=== PATIENT | male | born 1965 | race Caucasian/White ===

== ENCOUNTER 2016-08-18 13:48 | Emergency (ER) | payer OTHER, MEDICARE ==
[~2016-08-18] VITALS: Ht 182.9 cm; Wt 94.0 kg
[~2016-08-18 13:48] MED LIST: BENA25TA8 PO; BETH25TA PO; CEVI30CA PO; CLOB-50 TOP; CRES10TA PO; CYAN1000P IM; DICL25 PO; DULO60 PO; ENBR50IN3 SC; FAMO1TAB36 PO; FEXO180 PO; FLON0.053 EACH NARE; GABA600T PO; HYDR10SO PO; KETO1AER TOP; LINA145C PO; LISI-591 PO; LOSA100T PO; METO50TA PO; MONT10TA2 PO; MYCO500 PO; NIFE10 PO; NIFE20CA PO; NITR0.4S SL; NOVOINJ3 SQ; NOVOLOGP2 SQ; OLOP.1%O EACH EYE; PRED1%O EACH EYE; PRED20 PO; PROT40TA PO; ROBA750T3 PO; SYMB160A INH; TEST1INJ3 IM; ULTR50TA PO; VENTAER INH; XANA0.5T PO; Z.0.OXYGEN INH; ZOLP10TA3 PO
[2016-08-18 14:00] VITALS: BP_SYST 112; BP_SYST 115; BP_DIAS 69; BP_DIAS 75; PULSE 110; PULSE 96; RESP 16; TEMP 100.6; TEMP 99.9; O2SAT 92; O2SAT 93
[2016-08-18] MEDS ORDERED: SODIUM CHLOR 0.9% 1000 ML INJ 1,000 ML IV ONE (14:15)
[2016-08-18] MEDS ORDERED: ONDANSETRON HCL 4 MG/2 ML VIAL IV PUSH ONE (14:15)
[2016-08-18] MEDS ORDERED: ACETAMINOPHEN 325 MG TAB PO ONE (14:15)
[2016-08-18] MEDS ORDERED: RESP: ALBUTEROL 2.5 MG/IPRATROPIUM 0.5 MG NEB (SCH) INH ONE (14:15)
--- NOTE | 2016-08-18 14:19 | PD ---
HPI Chief Complaint: Cold / Flu Symptoms Time Seen by Provider: 14:05 Travel History International Travel<30 days: No Contact w/Intl Traveler<30days: No Traveled to known affect area: No History of Present Illness HPI 50-year-old male complains of fever, lightheadedness, dizziness, coughing, earache, shortness of breath, abdominal cramping. Patient states that he started having intermittent earache for the past month. Patient was seen by personal physician 4 days ago and examination was normal. Patient started having fever lightheadedness dizziness coughing shortness of breath abdominal cramping 2 days ago. Patient states that she took Tylenol prior coming to the emergency room. Patient has history of COPD. Patient denies any chest pain. Patient states the cough is persistent and nonproductive. Patient was given Tamiflu in the past and was not able to tolerated Tamiflu. PFSH Past Medical History Anemia: Yes (PERNICIOUS) Arthritis: No Asthma: Yes Autoimmune Disease: Yes Blood Disorders: No Anxiety: Yes Depression: No Heart Rhythm Problems: No Cancer: No Cardiovascular Problems: Yes (HTN vasculitis) High Cholesterol: Yes Chemotherapy: No Chest Pain: No Congestive Heart Failure: No COPD: Yes Cerebrovascular Accident: No Diabetes: Yes Diminished Hearing: No Endocrine: Yes Gastrointestinal Disorders: Yes (CONSTIPATION, GASTROPARESIS) GERD: Yes Genitourinary: No Headaches: Yes Hepatitis: No Hiatal Hernia: No Hypertension: Yes Immune Disorder: Yes (BEHCETS SYNDROME polymyocyitis) Insomnia: Yes Kidney Stones: No Musculoskeletal: Yes (ANKYLOSIN SPONDYLITIS, OSTEOPENIA, chronic back pain) Neurologic: Yes (headache/dizzyness, PERIPHERAL NEUROPATHY) Psychiatric: Yes (insomnia anxiety) Reproductive: No Respiratory: Yes (COPD) Migraines: No Myocardial Infarction: No Radiation Therapy: No Renal Failure: No Seizures: No Sickle Cell Disease: No Sleep Apnea: Yes (WITH CPAP & O2) Thyroid Disease: No Ulcer: No Past Surgical History Abdominal Surgery: Yes (hernia) AICD: No Arteriovenous Shunt: No Body Medical Devices: tooth implants in the front upper Cardiac Surgery: No Ear Surgery: No Endocrine Surgery: No Eye Surgery: No Genitourinary Surgery: No Gynecologic Surgery: No Insulin Pump: No Joint Replacement: No Oral Surgery: Yes (t and a) Pacemaker: No Thoracic Surgery: No Tonsillectomy: Yes Other Surgery: Yes (hernia repair when 3 years old) Social History Alcohol Use: No Tobacco Use: No Substance Use: No Allergies-Medications (Allergen,Severity, Reaction): Coded Allergies: *MDRO Multi-Drug Resistant Organism (Unverified Adverse Reaction, Unknown , 08/18/16) MRSA finger wound per 12/20/2014 ED note and H&P. MRSA PCR Screen #1 negative 05/29/15. Reported Meds & Prescriptions Reported Meds & Active Scripts Active Reported Vitamin B-12 (Cyanocobalamin) 100 Mcg Lozg 100 Mcg BUCCAL DAILY Testosterone (Testosterone (Bulk)) 1 Pow Pow 1 Ml WEEKLY Tramadol (Tramadol HCl) 50 Mg Tab 50 Mg PO BID PRN Prednisone 10 Mg Tab 10 Mg PO DAILY Protonix (Pantoprazole Sodium) 40 Mg Tab 40 Mg PO DAILY Prednisolone Acetate Opth 1% Susp Patanol Opth Drops (Olopatadine HCl) 0.1 % Drops 1 Drop EACH EYE BID Novolog Flexpen Inj (Insulin Aspart) 300 Unit/3 Ml Pen 1 Units SQ DIRECTED Linzess (Linaclotide) 145 Mcg Cap 145 Mcg PO DAILY Hydrocodone-Acetaminophen 5-325 mg Tab 1 Tab PO BID PRN Allergy Nasal [place] 24 Ho (Fluticasone Propionate (Nasal)) 50 Mcg/Act Spr 50 Mcg EACH NARE BID Eszopiclone 1 Mg Tab 1 Mg PO HS PRN Crestor (Rosuvastatin Calcium) 20 Mg Tab 20 Mg PO DAILY Clobetasol Topical (Clobetasol Propionate) 0.05% Cream 1 Applic TOPICAL BID Bethanechol 25 Mg Tab 12.5 Mg PO QID Alprazolam 0.5 Mg Tab 0.5 Mg PO BID PRN Vibramycin (Doxycycline Hyclate) 100 Mg Cap 100 Mg PO BID Synthroid (Levothyroxine Sodium) 100 Mcg Tab 100 Mcg PO DAILY Metoprolol Tartrate 50 Mg Tab 50 Mg PO BID Lisinopril 5 Mg Tab 5 Mg PO HS Review of Systems General / Constitutional: Positive: Fever Eyes: No: Visual changes HENT: No: Headaches Cardiovascular: No: Chest Pain or Discomfort Respiratory: Positive: Cough, Shortness of Breath Gastrointestinal: Positive: Nausea, Vomiting, No: Abdominal Pain Genitourinary: No: Dysuria Musculoskeletal: No: Pain Skin: No Rash Neurologic: No: Weakness Psychiatric: No: Depression Endocrine: No: Polydipsia Hematologic/Lymphatic: No: Easy Bruising Physical Exam Narrative GENERAL: Well-nourished, well-developed patient. SKIN: Warm and dry. HEAD: Normocephalic. EYES: No scleral icterus. No injection or drainage. TM: Patient has mild effusion behind the TM bilaterally. Throat: Nonerythematous. NECK: Supple, trachea midline. No JVD. Patient has mild anterior cervical lymphadenopathy. No meningismus CARDIOVASCULAR: Regular rate and rhythm without murmurs, gallops, or rubs. RESPIRATORY: Breath sounds equal bilaterally. No accessory muscle use. Few rhonchi at the bases. GASTROINTESTINAL: Abdomen soft, non-tender, nondistended. MUSCULOSKELETAL: No cyanosis, or edema. BACK: Nontender without obvious deformity. No CVA tenderness. Neurologic exam normal. Data Data Last Documented VS Vital Signs Date Time Temp Pulse Resp B/P Pulse Ox O2 Delivery O2 Flow Rate FiO2 08/18/16 14:00 93 08/18/16 14:00 100.6 96 16 112/75 08/18/16 14:00 Room Air Orders Complete Blood Count With Diff (08/18/16 14:11) Comprehensive Metabolic Panel (08/18/16 14:11) Influenzae A/B Antigen (08/18/16 14:11) Chest, Single Ap (08/18/16 14:11) Iv Access Insert/Monitor (08/18/16 14:11) Ecg Monitoring (08/18/16 14:11) Oximetry (08/18/16 14:11) Sodium Chlor 0.9% 1000 Ml Inj (Ns 1000 M (08/18/16 14:15) Ondansetron Inj (Zofran Inj) (08/18/16 14:15) Acetaminophen (Tylenol) (08/18/16 14:15) Albuterol-Ipratropium Neb (Duoneb Neb) (08/18/16 14:15) Ketorolac Inj (Toradol Inj) (08/18/16 15:00) Labs Laboratory Tests Test 08/18/16 14:30 White Blood Count 7.1 TH/MM3 Red Blood Count 6.05 MIL/MM3 Hemoglobin 16.8 GM/DL Hematocrit 49.5 % Mean Corpuscular Volume 81.8 FL Mean Corpuscular Hemoglobin 27.7 PG Mean Corpuscular Hemoglobin 33.8 % Concent Red Cell Distribution Width 13.5 % Platelet Count 167 TH/MM3 Mean Platelet Volume 7.4 FL Neutrophils (%) (Auto) 87.9 % Lymphocytes (%) (Auto) 5.3 % Monocytes (%) (Auto) 6.2 % Eosinophils (%) (Auto) 0.2 % Basophils (%) (Auto) 0.4 % Neutrophils # (Auto) 6.3 TH/MM3 Lymphocytes # (Auto) 0.4 TH/MM3 Monocytes # (Auto) 0.4 TH/MM3 Eosinophils # (Auto) 0.0 TH/MM3 Basophils # (Auto) 0.0 TH/MM3 CBC Comment DIFF FINAL Differential Comment Sodium Level 136 MEQ/L Potassium Level 4.2 MEQ/L Chloride Level 99 MEQ/L Carbon Dioxide Level 26.3 MEQ/L Anion Gap 11 MEQ/L Blood Urea Nitrogen 14 MG/DL Creatinine 1.30 MG/DL Estimat Glomerular Filtration 58 ML/MIN Rate Random Glucose 85 MG/DL Calcium Level 8.7 MG/DL Total Bilirubin 1.1 MG/DL Aspartate Amino Transf 18 U/L (AST/SGOT) Alanine Aminotransferase 23 U/L (ALT/SGPT) Alkaline Phosphatase 60 U/L Total Protein 7.5 GM/DL Albumin 3.8 GM/DL [facility] Medical Decision Making Medical Screen Exam Complete: Yes Emergency Medical Condition: Yes Interpretation(s) 1517 p.m. Chest x-ray shows no consolidation. CBC within normal limit. 87 neutrophil. CMP within normal limit. Differential Diagnosis Differential diagnosis including viral syndrome, otitis media, pharyngitis, bronchitis, pneumonia, gastroenteritis, colitis, electrolyte imbalance, dehydration. Narrative Course 50-year-old male with fever, coughing congestion, shortness of breath, nausea vomiting lightheadedness and dizziness. Normal saline solution 1 L IV bolus. Zofran 4 mg IV. Albuterol with Atrovent unit dose treatment times one. Diagnosis Primary Impression: Flu Additional Impression: COPD with acute exacerbation Patient Instructions: General Instructions Additional Instructions: Take medication as directed. Albuterol treatment as directed. Follow-up with personal physician. Return if worse. Med/Other Pt SpecificInfo: Prescription(s) given Scripts Benzonatate (Tessalon Perles)100 Mg [id number] Mg PO TID PRN (COUGH) #21 CAP Prov:Regis Alvarez MD 08/18/16 Hydrocodone-Acetaminophen (Mineral)5-325 mg Tab1 Tab PO Q6H PRN (PAIN) #20 TAB Prov:Regis Alvarez MD 08/18/16 Prednisone 20 Mg Tab20 Mg PO BID #10 TAB Prov:Regis Alvarez MD 08/18/16 Azithromycin (Zithromax Z-Andrews)250 Mg [id number] Mg PO DIRECTED #1 DSPK 500 MG (2 tabs) day 1, then 1 tab days 2-5. Prov:Regis Alvarez MD 08/18/16 Disposition: 01 DISCHARGE HOME Condition: Stable Regis Alvarez MD Aug 18, 2016 14:19
[2016-08-18] MEDS ORDERED: FLUT1SPR22 EACH NARE (14:22)
[2016-08-18] MEDS ORDERED: PRED1SUS6 (14:22)
[2016-08-18] MEDS ORDERED: ALPR0.5T3 PO (14:22)
[2016-08-18] MEDS ORDERED: TEST-55 (14:22)
[2016-08-18] MEDS ORDERED: ROSU20 PO (14:22)
[2016-08-18] MEDS ORDERED: PRED10 PO (14:22)
[2016-08-18] MEDS ORDERED: LINA145C PO (14:22)
[2016-08-18] MEDS ORDERED: LEVO.1 PO (14:22)
[2016-08-18] MEDS ORDERED: BETH25TA2 PO (14:22)
[2016-08-18] MEDS ORDERED: VIBR100C PO (14:22)
[2016-08-18] MEDS ORDERED: OLOP.1%O EACH EYE (14:22)
[2016-08-18] MEDS ORDERED: LISI-519 PO (14:22)
[2016-08-18] MEDS ORDERED: CLOB0.055 TOPICAL (14:22)
[2016-08-18] MEDS ORDERED: PROT40TA PO (14:22)
[2016-08-18] MEDS ORDERED: ESZO1TAB2 PO (14:22)
[2016-08-18] MEDS ORDERED: METO50TA PO (14:22)
[2016-08-18] MEDS ORDERED: VITA100L BUCCAL (14:22)
[2016-08-18] MEDS ORDERED: TRAM50TA PO (14:22)
[2016-08-18] MEDS ORDERED: HYDR-3516 PO (14:22)
[2016-08-18] MEDS ORDERED: NOVOINJ3 SQ (14:22)
--- NOTE | 2016-08-18 14:31 | RADHPO ---
EXAM DATE/TIME: 08/18/2016 14:23 [facility] COMPARISON: CHEST SINGLE AP, May 27, 2015, 22:15. INDICATIONS : Short of breath, cough, fever, chest pain MEDICAL HISTORY : Chronic obstructive pulmonary disease. SURGICAL HISTORY : None. ENCOUNTER: Initial ACUITY: 4 - 6 days PAIN SCORE: 6/10 LOCATION: Bilateral chest FINDINGS: A single view of the chest demonstrates the lungs to be symmetrically aerated without evidence of mas s, infiltrate or effusion. The cardiomediastinal contours are unremarkable. Osseous structures are intact. CONCLUSION: Normal examination. Gurjit Espinal MD on August 18, 2016 at 14:29 Board Certified Radiologist. This report was verified electronically.
[2016-08-18 14:41] LABS: AUTOMATED NEUTROPHIL # 6.3 TH/MM3 (1.8-7.7); BASOPHIL % 0.4 % (0.0-2.0); EOSINOPHIL % 0.2 % (0.0-4.0); HEMATOCRIT 49.5 % (39.0-51.0); LYMPH % 5.3 % (9.0-44.0); LYMPHOCYTE # 0.4 TH/MM3 (1.0-4.8); MEAN CELL VOLUME 81.8 FL (80.0-100.0); MEAN CORPUSCULAR HEMOGLOBIN 27.7 PG (27.0-34.0); MEAN CORPUSCULAR HGB CONC 33.8 % (32.0-36.0); MONO % 6.2 % (0.0-8.0); NEUT % 87.9 % (16.0-70.0); PLATELET COUNT 167 TH/MM3 (150-450); RED BLOOD COUNT 6.05 MIL/MM3 (4.50-5.90); RED CELL DISTRIBUTION WIDTH 13.5 % (11.6-17.2); WHITE BLOOD COUNT 7.1 TH/MM3 (4.0-11.0)
[2016-08-18 14:42] LABS: HEMO FLAGS DIFF FINAL
[2016-08-18 14:53] LABS: CHLORIDE 99 MEQ/L (98-107); POTASSIUM 4.2 MEQ/L (3.5-5.1); SODIUM (NA) 136 MEQ/L (136-145)
[2016-08-18 14:57] LABS: BICARBONATE 26.3 MEQ/L (21.0-32.0); BLOOD UREA NITROGEN 14 MG/DL (7-18)
[2016-08-18 14:59] LABS: ANION GAP 11 MEQ/L (5-15)
[2016-08-18 15:00] LABS: ALT (GPT) 23 U/L (12-78); AST (GOT) 18 U/L (15-37); GLOMERULAR FILTRATION RATE 58 ML/MIN (>89)
[2016-08-18] MEDS ORDERED: KETOROLAC TROMETHAMINE 30 MG/ML (IVP) VIAL IV PUSH ONE (15:00)
[2016-08-18 15:02] LABS: TOTAL BILIRUBIN ADULT 1.1 MG/DL (0.2-1.0)
[2016-08-18 15:03] LABS: ALKALINE PHOSPHATASE 60 U/L (45-117)
[2016-08-18] MEDS ORDERED: BENZ100 PO (15:30)
[2016-08-18] MEDS ORDERED: NORC5TAB PO (15:30)
[2016-08-18] MEDS ORDERED: ZITHTAB PO (15:30)
[2016-08-18] MEDS ORDERED: PRED20 PO (15:30)
[2016-08-19] MEDS ORDERED: IPRA0.02 NEB (17:21)
[2016-08-19] MEDS ORDERED: ALBU0.08 NEB (17:21)
== END 2016-08-18 16:07 | disposition home or self-care (01) ==
LOC: PHED 13:48
DX: J11.1 Influenza due to unidentified influenza virus with other respiratory manifestations (principal); J44.1 Chronic obstructive pulmonary disease with (acute) exacerbation; R42 Dizziness and giddiness; H92.09 Otalgia, unspecified ear; I10 Essential (primary) hypertension; E78.00 Pure hypercholesterolemia, unspecified; E11.9 Type 2 diabetes mellitus without complications; G47.30 Sleep apnea, unspecified; Z79.4 Long term (current) use of insulin; Z87.19 Personal history of other diseases of the digestive system; Z87.09 Personal history of other diseases of the respiratory system; Z86.2 Personal history of diseases of the blood and blood-forming organs and certain disorders involving the immune mechanism; Z87.39 Personal history of other diseases of the musculoskeletal system and connective tissue; Z86.69 Personal history of other diseases of the nervous system and sense organs; Z86.59 Personal history of other mental and behavioral disorders
CPT/HCPCS: 71010; 80053; 85025; 87804; 94664; 96361; 96374; 96375; 99284; J1885; J2405; J7030

== ENCOUNTER → 2016-09-17 | Outpatient (CLI) | payer OTHER, MEDICARE ==
[~2016-09-17] MED LIST changes: +ACTHAR IM; +ALBU0.08 NEB; +ALBUAER3 INH; +ALPR0.5T3 PO; +AZAT1INJ; +BENA25CA4 PO; -BENA25TA8 PO; +BENZ100 PO; -BETH25TA PO; +BETH25TA2 PO; -CEVI30CA PO; -CLOB-50 TOP; +CLOB0.055 TOPICAL; -CRES10TA PO; -CYAN1000P IM; -DICL25 PO; -DULO60 PO; -ENBR50IN3 SC; +ESZO1TAB2 PO; -FAMO1TAB36 PO; -FEXO180 PO; -FLON0.053 EACH NARE; +FLUT1SPR22 EACH NARE; -GABA600T PO; +HYDR-3516 PO; -HYDR10SO PO; +IPRA0.02 NEB; -KETO1AER TOP; +LEVO.1 PO; +LISI-519 PO; -LISI-591 PO; -LOSA100T PO; -MONT10TA2 PO; +MONT10TA4 PO; +MUPI2OIN TOPICAL; -MYCO500 PO; -NIFE10 PO; -NIFE20CA PO; -NITR0.4S SL; +NITR50VP; +NITR50VP SUBMUCOS; +NORC5TAB PO; +NOVOINJ SQ; -NOVOLOGP2 SQ; -PRED1%O EACH EYE; +PRED10 PO; +PRED1SUS6; +PROC25SU22 RECTAL; +ROBA750T PO; -ROBA750T3 PO; +ROSU20 PO; -SYMB160A INH; +SYMB80AE INH; +TEST-55; -TEST1INJ3 IM; +TRAM50TA PO; -ULTR50TA PO; -VENTAER INH; +VIBR100C PO; +VITA100L BUCCAL; -XANA0.5T PO; -Z.0.OXYGEN INH; +ZITHTAB PO; -ZOLP10TA3 PO
[2016-09-20 08:53] LABS: 5HIAA 24HR UR 5.7 mg/24 h (<=8.0)
== END ==
LOC: CLAB 13:40
PROVIDERS: ATTEND Internal Medicine Nephrology
DX: R23.2 Flushing (principal)
CPT/HCPCS: 83497

== ENCOUNTER 2016-10-28 05:45 | Emergency (ER) | payer OTHER, MEDICARE ==
[~2016-10-28] VITALS: Ht 182.9 cm; Wt 97.0 kg
[~2016-10-28 05:45] MED LIST changes: -ACTHAR IM; -ALBUAER3 INH; -AZAT1INJ; -BENA25CA4 PO; -MONT10TA4 PO; -MUPI2OIN TOPICAL; -NITR50VP; -NITR50VP SUBMUCOS; -NOVOINJ SQ; -PROC25SU22 RECTAL; -ROBA750T PO; -SYMB80AE INH
[2016-10-28 05:49] VITALS: BP 157/83; PULSE 106; RESP 16; TEMP 100.5; O2SAT 95
[2016-10-28 05:54] VITALS: BP 157/83; PULSE 110; RESP 16; TEMP 100.5; O2SAT 95
[2016-10-28] MEDS ORDERED: SODIUM CHLOR 0.9% 1000 ML INJ 1,000 ML IV SCH (06:09)
[2016-10-28] MEDS ORDERED: SODIUM CHLORIDE 0.9% FLUSH 10 ML FLUSH IV FLUSH PRN (06:15)
[2016-10-28] MEDS ORDERED: PROCHLORPERAZINE INJ 10 MG/2 ML VIAL IVS ONE (06:15)
[2016-10-28] MEDS ORDERED: BENA25CA4 PO (06:34)
[2016-10-28] MEDS ORDERED: NOVOINJ SQ (06:34)
[2016-10-28] MEDS ORDERED: NITR50VP SUBMUCOS (06:34)
[2016-10-28] MEDS ORDERED: MUPI2OIN TOPICAL (06:34)
[2016-10-28] MEDS ORDERED: ROBA750T PO (06:34)
[2016-10-28] MEDS ORDERED: SYMB80AE INH (06:34)
[2016-10-28] MEDS ORDERED: AZAT1INJ (06:34)
[2016-10-28] MEDS ORDERED: MONT10TA4 PO (06:34)
[2016-10-28] MEDS ORDERED: ACTHAR IM (06:34)
[2016-10-28] MEDS ORDERED: NITR50VP (06:34)
[2016-10-28] MEDS ORDERED: ALBUAER3 INH (06:34)
--- NOTE | 2016-10-28 06:48 | PD ---
HPI Chief Complaint: Abdominal Pain Time Seen by Provider: 06:09 Travel History International Travel<30 days: No Contact w/Intl Traveler<30days: No Traveled to known affect area: No History of Present Illness HPI 51-year-old male arrives with nausea vomiting diarrhea for about 8 hours or so. He states she's had about 20 episodes of diarrhea and about 20 episodes of vomiting. Mother was bloody. Subjective fever is reported. He has been unable to tolerate oral intake. He denies any spoiled/rancid foot intake. He has multiple rheumatologic diseases and takes prednisone and HP Achtar. PFSH Past Medical History Anemia: Yes (PERNICIOUS) Arthritis: Yes Asthma: Yes Autoimmune Disease: Yes Blood Disorders: No Anxiety: Yes Depression: Yes Heart Rhythm Problems: Yes Cancer: No Cardiovascular Problems: Yes (HTN, vasculitits) High Cholesterol: Yes Chemotherapy: No Chest Pain: No Congestive Heart Failure: No COPD: Yes Cerebrovascular Accident: No Diabetes: Yes Patient Takes Glucophage: No Diminished Hearing: No Diverticulitis: Yes Endocrine: Yes (hypothyriod, hypogonadiasm) Gastrointestinal Disorders: Yes (CONSTIPATION, GASTROPARESIS varies with diaherra) GERD: Yes Genitourinary: No Headaches: Yes Hepatitis: No Hiatal Hernia: No Hypertension: Yes Immune Disorder: Yes (BEHCETS SYNDROME polymyocyitis) Inguinal Hernia: Yes Insomnia: Yes Kidney Stones: No Musculoskeletal: Yes (ANKYLOSIN SPONDYLITIS, OSTEOPENIA, chronic back pain) Neurologic: Yes (headache/dizzyness, PERIPHERAL NEUROPATHY) Psychiatric: Yes (insomnia anxiety) Reproductive: No Respiratory: Yes (COPD) Migraines: No Myocardial Infarction: No Radiation Therapy: No Renal Failure: Yes Seizures: No Sickle Cell Disease: No Sleep Apnea: Yes (CPAP @ home) Thyroid Disease: Yes Ulcer: No Past Surgical History Abdominal Aneurysm Repair: Yes (hernia repair) Abdominal Surgery: Yes (hernia) AICD: No Arteriovenous Shunt: No Body Medical Devices: tooth implants in the front upper Cardiac Surgery: No Ear Surgery: No Endocrine Surgery: No Eye Surgery: No Genitourinary Surgery: No Gynecologic Surgery: No Insulin Pump: No Joint Replacement: No Oral Surgery: Yes (t and a) Pacemaker: No Thoracic Surgery: No Tonsillectomy: Yes Other Surgery: Yes (hernia repair when 3 years old) Family History Family Myocardial Infarction: Yes Family Hypercholesterolemia: Yes Social History Alcohol Use: No Tobacco Use: No Substance Use: No Allergies-Medications (Allergen,Severity, Reaction): Coded Allergies: *MDRO Multi-Drug Resistant Organism (Unverified Adverse Reaction, Unknown , 08/18/16) MRSA finger wound per 12/20/2014 ED note and H&P. MRSA PCR Screen #1 negative 05/29/15. Reported Meds & Prescriptions Reported Meds & Active Scripts Active Ipratropium Neb (Ipratropium [place]) 0.5 Mg/2.5 Ml Amp 0.5 Mg NEB Q4HR NEB Albuterol Neb (Albuterol Sulfate) 2.5 Mg/3 Ml Neb 2.5 Mg NEB Q4HR NEB While awake Reported Symbicort Inh (Budesonide/Formoterol Fumarate) 80-4.5 Mcg/Act Aero 1 Puff INH Q12HR Robaxin (Methocarbamol) 750 Mg Tab 750 Mg PO Q6HR PRN Proair Hfa 8.5 GM Inh (Albuterol Sulfate) 90 Mcg/Act Aer 2 Puff INH Q4H PRN 108 mcg/actuation Novolog Penfill Inj (Insulin Aspart) 300 Unit/3 Ml Pen 5 Units SQ TID Nitroglycerin 5 Mg/Ml Inj 0.4 Mg SUBMUCOS PRN Nitroglycerin 5 Mg/Ml Inj Mupirocin Topical (Mupirocin) 2 % Oint 1 Applic TOPICAL BID Montelukast (Montelukast Sodium) 10 Mg Tab 10 Mg PO HS Benadryl Allergy (Diphenhydramine HCl) 25 Mg Cap 1 Cap PO Q4HR Azathioprine (Azathioprine Sodium) 100 Mg Inj 75 Mg DAILY [acthar] 80 Units IM 2XWEEK Vitamin B-12 (Cyanocobalamin) 100 Mcg Lozg 100 Mcg BUCCAL DAILY Testosterone (Testosterone (Bulk)) 1 Pow Pow 1 Ml WEEKLY Tramadol (Tramadol HCl) 50 Mg Tab 50 Mg PO BID PRN Prednisone 10 Mg Tab 10 Mg PO DAILY Protonix (Pantoprazole Sodium) 40 Mg Tab 40 Mg PO DAILY Prednisolone Acetate Opth 1% Susp Patanol Opth Drops (Olopatadine HCl) 0.1 % Drops 1 Drop EACH EYE BID Linzess (Linaclotide) 145 Mcg Cap 145 Mcg PO DAILY Allergy Nasal [place] 24 Ho (Fluticasone Propionate (Nasal)) 50 Mcg/Act Spr 50 Mcg EACH NARE BID Eszopiclone 1 Mg Tab 1 Mg PO HS PRN Crestor (Rosuvastatin Calcium) 20 Mg Tab 20 Mg PO DAILY Clobetasol Topical (Clobetasol Propionate) 0.05% Cream 1 Applic TOPICAL BID Bethanechol 25 Mg Tab 12.5 Mg PO QID Alprazolam 0.5 Mg Tab 0.5 Mg PO BID PRN Synthroid (Levothyroxine Sodium) 100 Mcg Tab 100 Mcg PO DAILY Metoprolol Tartrate 50 Mg Tab 50 Mg PO BID Lisinopril 5 Mg Tab 5 Mg PO HS Review of Systems Except as stated in HPI: all other systems reviewed are Neg Physical Exam Narrative GENERAL: 51 yo M, WNWD, no acute distress SKIN: Warm and dry. HEAD: Atraumatic. Normocephalic. EYES: Pupils equal and round. No scleral icterus. No injection or drainage. ENT: No nasal bleeding or discharge. Mucous membranes pink and moist. NECK: Trachea midline. No JVD. CARDIOVASCULAR: Regular rate and rhythm. RESPIRATORY: No accessory muscle use. Clear to auscultation. Breath sounds equal bilaterally. GASTROINTESTINAL: Abdomen soft, non-tender, nondistended. Hepatic and splenic margins not palpable. MUSCULOSKELETAL: Extremities without clubbing, cyanosis, or edema. No obvious deformities. NEUROLOGICAL: Awake and alert. No obvious cranial nerve deficits. Motor grossly within normal limits. Five out of 5 muscle strength in the arms and legs. Normal speech. PSYCHIATRIC: Appropriate mood and affect; insight and judgment normal. Data Data Last Documented VS Vital Signs Date Time Temp Pulse Resp B/P Pulse Ox O2 Delivery O2 Flow Rate FiO2 10/28/16 05:54 100.5 110 16 157/83 95 Nasal [place] 2 VS reviewed Orders Complete Blood Count With Diff (10/28/16 06:09) Comprehensive Metabolic Panel (10/28/16 06:09) Lipase (10/28/16 06:09) Lactic Acid (10/28/16 06:09) Iv Access Insert/Monitor (10/28/16 06:09) Ecg Monitoring (10/28/16 06:09) Oximetry (10/28/16 06:09) Sodium Chlor 0.9% 1000 Ml Inj (Ns 1000 M (10/28/16 06:09) Sodium Chloride 0.9% Flush (Ns Flush) (10/28/16 06:15) Prochlorperazine Inj (Compazine Inj) (10/28/16 06:15) [facility] Medical Decision Making Medical Screen Exam Complete: Yes Emergency Medical Condition: Yes Medical Record Reviewed: Yes Differential Diagnosis Constipation, Gastritis, Acute Cholecystitis, Biliary Colic, Pancreatitis, CHE , Hepatitis, Bowel Obstruction, Cystitis, Mesenteric Ischemia, AAA, Appendicitis , Renal Stone/Hydronephrosis, GERD, perforated viscous Narrative Course NS, compazine, hydromorphone started. blood work started and pending at time of dictation. oncoming provider will follow up results and disposition appropriately. Additional Instructions: You have a choice when it comes to health care, and we are glad that you chose [facility]. Hopefully, we have met your expectations on today's visit. You are welcome to return to [facility] at any time, as we are committed to meeting the health care needs of our community. Kyrie Phipps MD Oct 28, 2016 06:48 Kyrie Phipps MD Oct 28, 2016 06:48
[2016-10-28 07:05] LABS: BASOPHIL % 0.2 % (0.0-2.0); EOSINOPHIL % 0.3 % (0.0-4.0); HEMATOCRIT 52.1 % (39.0-51.0); HEMO FLAGS DIFF FINAL; LYMPH % 1.1 % (9.0-44.0); LYMPHOCYTE # 0.2 TH/MM3 (1.0-4.8); MEAN CELL VOLUME 83.2 FL (80.0-100.0); MEAN CORPUSCULAR HEMOGLOBIN 28.3 PG (27.0-34.0); NEUT % 95.4 % (16.0-70.0); PLATELET COUNT 164 TH/MM3 (150-450); RED BLOOD COUNT 6.26 MIL/MM3 (4.50-5.90); RED CELL DISTRIBUTION WIDTH 15.3 % (11.6-17.2); WHITE BLOOD COUNT 13.7 TH/MM3 (4.0-11.0)
[2016-10-28 07:26] LABS: ALKALINE PHOSPHATASE 58 U/L (45-117); ALT (GPT) 27 U/L (12-78); TOTAL BILIRUBIN ADULT 0.9 MG/DL (0.2-1.0)
[2016-10-28 07:29] LABS: ANION GAP 11 MEQ/L (5-15); AST (GOT) 14 U/L (15-37); BICARBONATE 25.6 MEQ/L (21.0-32.0); BLOOD UREA NITROGEN 15 MG/DL (7-18); CHLORIDE 106 MEQ/L (98-107); GLOMERULAR FILTRATION RATE 62 ML/MIN (>89); POTASSIUM 4.1 MEQ/L (3.5-5.1); SODIUM (NA) 143 MEQ/L (136-145)
[2016-10-28 09:00] VITALS: BP 145/80; PULSE 112; O2SAT 92
[2016-10-28 10:30] VITALS: BP 128/78; PULSE 108; RESP 20; O2SAT 94
[2016-10-28 10:44] VITALS: TEMP 99
[2016-10-28] MEDS ORDERED: PROC25SU22 RECTAL (11:27)
--- NOTE | 2016-10-28 11:30 | PD ---
Data Data Last Documented VS Vital Signs Date Time Temp Pulse Resp B/P Pulse Ox O2 Delivery O2 Flow Rate FiO2 10/28/16 10:44 99.0 10/28/16 10:30 108 20 128/78 94 Nasal Cannula 2 Orders Complete Blood Count With Diff (10/28/16 06:09) Comprehensive Metabolic Panel (10/28/16 06:09) Lipase (10/28/16 06:09) Lactic Acid (10/28/16 06:09) Iv Access Insert/Monitor (10/28/16 06:09) Ecg Monitoring (10/28/16 06:09) Oximetry (10/28/16 06:09) Sodium Chlor 0.9% 1000 Ml Inj (Ns 1000 M (10/28/16 06:09) Sodium Chloride 0.9% Flush (Ns Flush) (10/28/16 06:15) Prochlorperazine Inj (Compazine Inj) (10/28/16 06:15) Labs Laboratory Tests Test 10/28/16 06:20 White Blood Count 13.7 TH/MM3 Red Blood Count 6.26 MIL/MM3 Hemoglobin 17.7 GM/DL Hematocrit 52.1 % Mean Corpuscular Volume 83.2 FL Mean Corpuscular Hemoglobin 28.3 PG Mean Corpuscular Hemoglobin 34.0 % Concent Red Cell Distribution Width 15.3 % Platelet Count 164 TH/MM3 Mean Platelet Volume 8.6 FL Neutrophils (%) (Auto) 95.4 % Lymphocytes (%) (Auto) 1.1 % Monocytes (%) (Auto) 3.0 % Eosinophils (%) (Auto) 0.3 % Basophils (%) (Auto) 0.2 % Neutrophils # (Auto) 13.0 TH/MM3 Lymphocytes # (Auto) 0.2 TH/MM3 Monocytes # (Auto) 0.4 TH/MM3 Eosinophils # (Auto) 0.0 TH/MM3 Basophils # (Auto) 0.0 TH/MM3 CBC Comment DIFF FINAL Differential Comment Sodium Level 143 MEQ/L Potassium Level 4.1 MEQ/L Chloride Level 106 MEQ/L Carbon Dioxide Level 25.6 MEQ/L Anion Gap 11 MEQ/L Blood Urea Nitrogen 15 MG/DL Creatinine 1.22 MG/DL Estimat Glomerular Filtration 62 ML/MIN Rate Random Glucose 203 MG/DL Lactic Acid Level 1.8 mmol/L Calcium Level 8.4 MG/DL Total Bilirubin 0.9 MG/DL Aspartate Amino Transf 14 U/L (AST/SGOT) Alanine Aminotransferase 27 U/L (ALT/SGPT) Alkaline Phosphatase 58 U/L Total Protein 6.6 GM/DL Albumin 3.8 GM/DL Lipase 90 U/L [facility] Supervised Visit with AKOSUA: No Narrative Course This patient is checked out to me by Dr. Phipps. Spoken with the patient and reviewed the entirety of the results with him. CBC shows some nonspecific leukocytosis, not unexpected for his presentation of vomiting and diarrhea He has been given IV fluid and has normal electrolytes He is euvolemic now He's been here multiple hours with no vomiting or diarrhea here in the ER He Would like Compazine suppository on prescription. I've written some period warned about potential sedation. I have recommended clear liquids for 24 hours, then gradually advance as tolerated. Diagnosis Primary Impression: Nausea, vomiting and diarrhea Additional Instruction: The patient was advised to follow up with their physician and return if they worsen. The patient was warned about potential sedation for the medications they will receive on prescription. I have recommended clear liquids for 24 hours, then gradually advance as tolerated. Med/Other Pt SpecificInfo: Prescription(s) given Scripts Prochlorperazine Supp 25 Mg Supp25 Mg RECTAL Q6H PRN (NAUSEA OR VOMITING) #12 SUPP Ref 0 Prov:Gregory Escalante MD 10/28/16 Disposition: 01 DISCHARGE HOME Condition: Stable Gregory Escalante MD Oct 28, 2016 11:30
[2016-10-28 12:07] VITALS: BP 149/84
== END 2016-10-28 12:00 | disposition home or self-care (01) ==
LOC: NEPC 05:45
DX: R11.2 Nausea with vomiting, unspecified (principal); R19.7 Diarrhea, unspecified; D51.0 Vitamin B12 deficiency anemia due to intrinsic factor deficiency; J45.909 Unspecified asthma, uncomplicated; M19.90 Unspecified osteoarthritis, unspecified site; F41.8 Other specified anxiety disorders; I10 Essential (primary) hypertension; E78.00 Pure hypercholesterolemia, unspecified; J44.9 Chronic obstructive pulmonary disease, unspecified; M35.2 Behcet's disease; M85.80 Other specified disorders of bone density and structure, unspecified site; E07.9 Disorder of thyroid, unspecified; E11.9 Type 2 diabetes mellitus without complications
CPT/HCPCS: 80053; 83605; 83690; 85025; 96361; 96374; 99284; J0780; J7030

== ENCOUNTER → 2017-04-10 | Outpatient (CLI) | payer OTHER, MEDICARE ==
[~2017-04-10] MED LIST changes: +ACTHAR IM; +ALBUAER3 INH; +AZAT1INJ; +BENA25CA4 PO; -BENZ100 PO; -HYDR-3516 PO; +MONT10TA4 PO; +MUPI2OIN TOPICAL; +NITR50VP; +NITR50VP SUBMUCOS; -NORC5TAB PO; +NOVOINJ SQ; -NOVOINJ3 SQ; -PRED20 PO; +PROC25SU22 RECTAL; +ROBA750T PO; +SYMB80AE INH; -VIBR100C PO; -ZITHTAB PO
--- NOTE | 2017-04-10 10:47 | RADRPT ---
EXAM DATE/TIME: 04/10/2017 00:00 [facility] COMPARISON: No previous studies available for comparison. INDICATIONS : Dysphagia. FLUORO TIME: 0.9 minutes IMAGE COUNT: 0 CONTRAST: Dose as prescribed by speech pathologist. MEDICAL HISTORY : Gastroesophageal reflux disease. Chronic obstructive pulmonary disease. Hypertension. Auto immune disorder 7 years, diabetes SURGICAL HISTORY : None. ENCOUNTER: Initial ACUITY: 2 months PAIN SCORE: 0/10 LOCATION: Bilateral neck FINDINGS: The examination was performed in conjunction with speech pathology. CONCLUSION: Please refer to speech pathology report for complete discussion. Placido Brito MD on April 10, 2017 at 10:45 Board Certified Radiologist. This report was verified electronically.
== END ==
LOC: HRAD 10:04
PROVIDERS: ATTEND Physician Assistant Medical
DX: R13.10 Dysphagia, unspecified (principal)
CPT/HCPCS: 74230; 92611; G8996; G8997; G8998

== ENCOUNTER 2017-11-12 10:41 | Emergency (ER) | payer OTHER, MEDICARE ==
[~2017-11-12] VITALS: Ht 182.9 cm; Wt 100.0 kg
[2017-11-12 10:56] VITALS: BP 154/75; PULSE 89; RESP 17; TEMP 98.2; O2SAT 96
[2017-11-12] MEDS ORDERED: SODIUM CHLORIDE 0.9% FLUSH 10 ML FLUSH IVF PRN (11:30)
[2017-11-12] MEDS ORDERED: SODIUM CHLOR 0.9% 1000 ML INJ 1,000 ML IV ONE ×2 (11:30→12:45)
--- NOTE | 2017-11-12 11:42 | PD ---
HPI Chief Complaint: Medical Clearance Time Seen by Provider: 11:16 Travel History International Travel<30 days: No Contact w/Intl Traveler<30days: No Traveled to known affect area: No History of Present Illness HPI Patient is a 52-year-old male presenting to the emergency department for evaluation of nausea, vomiting, diarrhea. Symptoms started 2 days ago. Patient reports fevers with a max temp of 101.5. He states that they are intermittent in nature. states that when he begins to get chilled she gives him a Tylenol. Last dose was at 6 AM this morning. Patient reports he ate pretzels and Gatorade last night and was able to keep them down. Patient was also able to keep down his morning medications this morning. Patient reports a history of adrenal insufficiency, he is followed by Dr. Best, he had an ACTH drawn yesterday, he states the dose of hydrocortisone made him feel better. He reports that he has been on high-dose steroids since 2010. Steroids were recently withdrawn 9 weeks ago in order to start Rituxan. Patient states that since the steroids were withdrawn he has felt worse. He went to his primary doctor who felt that the GI symptoms should be evaluated further due to patient's history. Patient has an extensive past medical history. PFSH Past Medical History Anemia: Yes (PERNICIOUS) Arthritis: Yes Autoimmune Disease: Yes (Sjorgeon syndrome, Raynaud's syndrome) Anxiety: Yes Depression: Yes Heart Rhythm Problems: Yes Cardiovascular Problems: Yes (vasculitits) High Cholesterol: Yes COPD: Yes Diabetes: Yes Diverticulitis: Yes Endocrine: Yes (hypogonadiasm) Gastrointestinal Disorders: Yes (gastroparesis) GERD: Yes Headaches: Yes Hypertension: Yes Immune Disorder: Yes (BEHCETS SYNDROME polymyocyitis) Inguinal Hernia: Yes Insomnia: Yes Medical other: Yes (Uveitis) Musculoskeletal: Yes (ANKYLOSIN SPONDYLITIS, OSTEOPENIA, chronic back pain) Neurologic: Yes (PERIPHERAL NEUROPATHY) Renal Failure: Yes Sleep Apnea: Yes (CPAP @ home) Thyroid Disease: Yes Ulcer: No Past Surgical History Abdominal Surgery: Yes (hernia) Body Medical Devices: tooth implants in the front upper Tonsillectomy: Yes Family History Family Hypercholesterolemia: Yes Social History Alcohol Use: No Tobacco Use: No Substance Use: No Allergies-Medications (Allergen,Severity, Reaction): Coded Allergies: oseltamivir (Verified Allergy, Severe, Hallucinations, 11/12/17) *MDRO Multi-Drug Resistant Organism (Unverified Adverse Reaction, Unknown , 11/12/17) MRSA finger wound per 12/20/2014 ED note and H&P. MRSA PCR Screen #1 negative 05/29/15. Reported Meds & Prescriptions Reported Meds & Active Scripts Active Prochlorperazine Supp (Prochlorperazine) 25 Mg Supp 25 Mg RECTAL Q6H PRN Ipratropium Neb (Ipratropium Loami) 0.5 Mg/2.5 Ml Amp 0.5 Mg NEB Q4HR NEB Albuterol Neb (Albuterol Sulfate) 2.5 Mg/3 Ml Neb 2.5 Mg NEB Q4HR NEB While awake Reported Multi For Him (Multiple Vitamins W/ Minerals) 0.4 Mg-2 Mg-250 Mcg Tab Protonix (Pantoprazole Sodium) 40 Mg Tab 40 Mg PO BID Proair Hfa 8.5 GM Inh (Albuterol Sulfate) 90 Mcg/Act Aer 2 Puff INH Q4-6H PRN 108 mcg/actuation Pred Forte Opth 1% (Prednisolone Acetate Opth 1%) 1% Susp 2 Drop EACH EYE BID Prednisone 20 Mg Tab 20 Mg PO DAILY Pepcid (Famotidine) 20 Mg Tab 10 Mg PO BID Methotrexate 2.5 Mg Tab 0.6 Mg PO Q7D Humalog Kwikpen Pen Inj (Insulin Lispro (Human) Inj) 300 Unit/3 Ml Pen 1 Units SQ Montelukast (Montelukast Sodium) 10 Mg Tab 10 Mg PO HS Metoprolol Succinate/HCTZ 100-12.5 ER 100 Mg-12.5 Mg Tab 1 Tab PO DAILY Lantus Inj (Insulin Glargine) 1,000 Unit/10 Ml Vial 15 Units SQ HS Jardiance (Empagliflozin) 25 Mg Tab 25 Mg PO DAILY Ipratropium Neb (Ipratropium Loami) 0.5 Mg/2.5 Ml Amp 0.5 Mg NEB Q4HR NEB PRN Hydrocodone-Acetaminophen 5-300 Mg Tab 1 Tab PO Q6H PRN Folic Acid 0.8 Mg Tab 800 Mcg PO DAILY Fluticasone Nasal [place] 50 Mcg/Act Naspr 100 Mcg EACH NARE BID 50 mcg/spray Famotidine 20 Mg Tab 20 Mg PO DAILY Cephalexin 500 Mg Cap 500 Mg PO Q12H Bethanechol 25 Mg Tab 25 Mg PO Q 6HRS B-12 Tr (Cyanocobalamin) 1,000 Mcg Tab 1,000 Mcg IM EVERY2 WEEKS Lovely Allergy (Fexofenadine HCl) 180 Mg Tab 180 Mg PO DAILY Flexeril (Cyclobenzaprine HCl) 5 Mg Tab 5 Mg PO Cevimeline (Cevimeline HCl) 30 Mg Cap 30 Mg PO TID Methotrexate Inj 25 Mg/Ml Inj 0.6 Ml IM Vitamin D3 (Cholecalciferol) 1,000 Unit Cap 1,000 Units DAILY Xanax (Alprazolam) 0.5 Mg Tab 0.5 Mg PO Q6H PRN Temazepam 15 Mg Cap 15 Mg PO HS PRN Symbicort Inh (Budesonide/Formoterol Fumarate) 80-4.5 Mcg/Act Aero 1 Puff INH Q12HR Nitroglycerin 5 Mg/Ml Inj 0.4 Mg SUBMUCOS PRN Mupirocin Topical (Mupirocin) 2 % Oint 1 Applic TOPICAL BID Montelukast (Montelukast Sodium) 10 Mg Tab 10 Mg PO HS Benadryl Allergy (Diphenhydramine HCl) 25 Mg Cap 1 Cap PO Q4HR [acthar] 80 Units IM 2XWEEK Testosterone (Testosterone (Bulk)) 1 Pow Pow 1 Ml WEEKLY Tramadol (Tramadol HCl) 50 Mg Tab 50 Mg PO BID PRN Prednisolone Acetate Opth 1% Susp Patanol Opth 0.1% (Olopatadine HCl) 0.1 % Drops 1 Drop EACH EYE BID Linzess (Linaclotide) 145 Mcg Cap 145 Mcg PO DAILY Eszopiclone 1 Mg Tab 1 Mg PO HS PRN Crestor (Rosuvastatin Calcium) 20 Mg Tab 20 Mg PO DAILY Clobetasol Topical (Clobetasol Propionate) 0.05% Cream 1 Applic TOPICAL BID Synthroid (Levothyroxine Sodium) 100 Mcg Tab 100 Mcg PO DAILY Lisinopril 5 Mg Tab 5 Mg PO HS Review of Systems Except as stated in HPI: all other systems reviewed are Neg General / Constitutional: Positive: Fever, Chills Eyes: No: Blurred Vision HENT: No: Headaches Cardiovascular: No: Chest Pain or Discomfort Respiratory: No: Shortness of Breath Gastrointestinal: Positive: Nausea, Vomiting, Diarrhea, No: Abdominal Pain Genitourinary: No: Dysuria Musculoskeletal: No: Myalgias Neurologic: Positive: Weakness, No: Dizziness, Syncope, Focal Abnormalities Physical Exam Narrative GENERAL: Well-developed, well-nourished, well-appearing male. Presenting in no acute distress. SKIN: Warm and dry. HEAD: Atraumatic. Normocephalic. EYES: Pupils equal and round. No scleral icterus. No injection or drainage. ENT: No nasal bleeding or discharge. Mucous membranes pink and moist. NECK: Trachea midline. No JVD. CARDIOVASCULAR: Regular rate and rhythm. RESPIRATORY: No accessory muscle use. Clear to auscultation. Breath sounds equal bilaterally. GASTROINTESTINAL: Abdomen soft, non-tender, nondistended. Hepatic and splenic margins not palpable. MUSCULOSKELETAL: Extremities without clubbing, cyanosis, or edema. No obvious deformities. NEUROLOGICAL: Awake and alert. No obvious cranial nerve deficits. Motor grossly within normal limits. Five out of 5 muscle strength in the arms and legs. Normal speech. PSYCHIATRIC: Appropriate mood and affect; insight and judgment normal. Data Data Last Documented VS Vital Signs Date Time Temp Pulse Resp B/P (MAP) Pulse Ox O2 Delivery O2 Flow Rate FiO2 11/12/17 11:44 99 Room Air 11/12/17 11:39 86 18 11/12/17 10:56 98.2 154/75 (101) Orders Orders Complete Blood Count With Diff (11/12/17 11:00) Comprehensive Metabolic Panel (11/12/17 11:00) Lipase (11/12/17 11:00) Urinalysis - C+S If Indicated (11/12/17 11:30) Iv Access Insert/Monitor (11/12/17 11:30) Ecg Monitoring (11/12/17 11:30) Oximetry (11/12/17 11:30) Sodium Chlor 0.9% 1000 Ml Inj (Ns 1000 M (11/12/17 11:30) Sodium Chloride 0.9% Flush (Ns Flush) (11/12/17 11:30) Sodium Chlor 0.9% 1000 Ml Inj (Ns 1000 M (11/12/17 12:45) Hydrocortisone Inj (Solucortef Inj) (11/12/17 14:30) Al-Mag Hy-Si 40-40-4 Mg/Ml Liq (Mag-Al P (11/12/17 14:30) Lidocaine 2% Viscous (Xylocaine 2% Visco (11/12/17 14:30) Labs Laboratory Tests Test 11/12/17 11:09 11/12/17 12:05 White Blood Count 11.4 TH/MM3 Red Blood Count 6.22 MIL/MM3 Hemoglobin 18.2 GM/DL Hematocrit 53.3 % Mean Corpuscular Volume 85.6 FL Mean Corpuscular Hemoglobin 29.2 PG Mean Corpuscular Hemoglobin Concent 34.1 % Red Cell Distribution Width 15.9 % Platelet Count 184 TH/MM3 Mean Platelet Volume 8.2 FL Neutrophils (%) (Auto) 91.1 % Lymphocytes (%) (Auto) 3.7 % Monocytes (%) (Auto) 5.0 % Eosinophils (%) (Auto) 0.0 % Basophils (%) (Auto) 0.2 % Neutrophils # (Auto) 10.3 TH/MM3 Lymphocytes # (Auto) 0.4 TH/MM3 Monocytes # (Auto) 0.6 TH/MM3 Eosinophils # (Auto) 0.0 TH/MM3 Basophils # (Auto) 0.0 TH/MM3 CBC Comment DIFF FINAL Differential Comment Blood Urea Nitrogen 19 MG/DL Creatinine 1.31 MG/DL Random Glucose 82 MG/DL Total Protein 7.5 GM/DL Albumin 4.2 GM/DL Calcium Level 8.8 MG/DL Alkaline Phosphatase 79 U/L Aspartate Amino Transf (AST/SGOT) 24 U/L Alanine Aminotransferase (ALT/SGPT) 44 U/L Total Bilirubin 1.7 MG/DL Sodium Level 137 MEQ/L Potassium Level 4.3 MEQ/L Chloride Level 101 MEQ/L Carbon Dioxide Level 25.6 MEQ/L Anion Gap 10 MEQ/L Estimat Glomerular Filtration Rate 57 ML/MIN Lipase 88 U/L Urine Color YELLOW Urine Turbidity CLEAR Urine pH 5.5 Urine Specific [place] 1.047 Urine Protein TRACE mg/dL Urine Glucose (UA) 1000 mg/dL Urine Ketones 150 mg/dL Urine Occult Blood NEG Urine Nitrite NEG Urine Bilirubin NEG Urine Urobilinogen 2.0 MG/DL Urine Leukocyte Esterase NEG Urine RBC 1 /hpf Urine WBC 1 /hpf Urine Squamous Epithelial Cells <1 /hpf Urine Hyaline Casts 7 /lpf Urine Mucus FEW /lpf Microscopic Urinalysis Comment CULT NOT INDICATED MDM Medical Decision Making Medical Screen Exam Complete: Yes Emergency Medical Condition: Yes Medical Record Reviewed: Yes Interpretation(s) Vital Signs Date Time Temp Pulse Resp B/P (MAP) Pulse Ox O2 Delivery O2 Flow Rate FiO2 11/12/17 10:56 98.2 89 17 154/75 (811) 96 Differential Diagnosis Adrenal insufficiency versus metabolic abnormality versus gastroenteritis versus viral syndrome versus other Narrative Course Patient is a 52-year-old male presenting to the emergency department for evaluation of nausea, vomiting, diarrhea. Patient was sent by his primary doctor for further evaluation due to extensive past medical history. He had ACTH test performed yesterday through Dr. Best, his symptoms seemed to improve after the administration of hydrocortisone. Medical records reviewed, labs ordered and pending. Patient was placed on environmental monitoring specialist, continuous pulse oximetry. IV access established. IV fluids ordered. Labs reviewed, CBC with a slight elevated white count, this is likely secondary to vomiting. Chemistry with BUN and creatinine 19/.31. Urine with elevated ketones at 150. Patient was given a total of 2 L of IV fluids. He reports feeling better. Called Dr. Best's office, spoke with nurse. Dr. Best is to call back. Will wait on recommendations from him prior to discharging patient. I spoke with Dr. Best, reviewed labs as well as Cortisol levels from this morning that were drawn as OP. He advised to give 50 mg IV hydrocortisone now and send patient home on 10mg oral hydrocortisone in the morning and 5 mg in the evening. He does not feel that this is an adrenal crisis. Labs are reassuring, discussed with patient and family. Patient will be discharged home with close follow-up with Dr. Best as well as his primary doctor. Patient was advised on Dr. Best's recommendations. They verbalized understanding. Patient stable for discharge. Diagnosis Primary Impression: Nausea, vomiting and diarrhea Referrals: [employer] 2 days Primary Care Physician 1 day Patient Instructions: Acute Nausea and Vomiting (ED), General Instructions Additional Instructions: Follow-up with Dr. Best Follow-up with your primary doctor Take medications as directed You will start hydrocortisone 10 mg in the morning and 5 mg in the evening Return to emergency department for any new or worsening symptoms Maintain a bland, easy to digest diet, increasing as tolerated. Maintain adequate fluid intake Avoid spicy, fried, fatty foods, acidic juices Med/Other Pt SpecificInfo: Prescription(s) given Scripts Hydrocortisone (Hydrocortisone) 10 Mg Tab 10 MG PO DAILY, #30 TAB 0 Refills THIS DOSE IS TO BE TAKEN IN THE MORNING Take with food to decrease GI upset Prov: Enma Acevedo 11/12/17 Hydrocortisone (Hydrocortisone) 5 Mg Tab 5 MG PO HS, #30 TAB 0 Refills Take with food to decrease GI upset Prov: Enma Acevedo 11/12/17 Disposition: 01 DISCHARGE HOME Condition: Stable Enma Acevedo Nov 12, 2017 11:42
[2017-11-12 11:44] VITALS: O2SAT 99
[2017-11-12] MEDS ORDERED: TEMA15CA PO (12:00)
[2017-11-12] MEDS ORDERED: CYCL5TAB PO (12:00)
[2017-11-12] MEDS ORDERED: CEVI1CAP PO (12:00)
[2017-11-12] MEDS ORDERED: ALPR.5 PO (12:00)
[2017-11-12] MEDS ORDERED: CHOL10008 (12:00)
[2017-11-12] MEDS ORDERED: ROSU10 PO (12:00)
[2017-11-12] MEDS ORDERED: METH25IN13 IM (12:00)
[2017-11-12 12:07] LABS: AUTOMATED NEUTROPHIL # 10.3 TH/MM3 (1.8-7.7); BASOPHIL % 0.2 % (0.0-2.0); HEMATOCRIT 53.3 % (39.0-51.0); HEMOGLOBIN 18.2 GM/DL (13.0-17.0); LYMPH % 3.7 % (9.0-44.0); LYMPHOCYTE # 0.4 TH/MM3 (1.0-4.8); MEAN CELL VOLUME 85.6 FL (80.0-100.0); MEAN CORPUSCULAR HEMOGLOBIN 29.2 PG (27.0-34.0); MEAN CORPUSCULAR HGB CONC 34.1 % (32.0-36.0); MEAN PLATELET VOLUME 8.2 FL (7.0-11.0); MONOCYTE # 0.6 TH/MM3 (0-0.9); NEUT % 91.1 % (16.0-70.0); PLATELET COUNT 184 TH/MM3 (150-450); RED BLOOD COUNT 6.22 MIL/MM3 (4.50-5.90); RED CELL DISTRIBUTION WIDTH 15.9 % (11.6-17.2); WHITE BLOOD COUNT 11.4 TH/MM3 (4.0-11.0)
[2017-11-12 12:18] LABS: ALBUMIN 4.2 GM/DL (3.4-5.0); ALT (GPT) 44 U/L (12-78); AST (GOT) 24 U/L (15-37); BICARBONATE 25.6 MEQ/L (21.0-32.0); BLOOD UREA NITROGEN 19 MG/DL (7-18); CALCIUM 8.8 MG/DL (8.5-10.1); CHLORIDE 101 MEQ/L (98-107); CREATININE 1.31 MG/DL (0.60-1.30); GLOMERULAR FILTRATION RATE 57 ML/MIN (>89); GLUCOSE,RANDOM 82 MG/DL (74-106); SODIUM (NA) 137 MEQ/L (136-145)
[2017-11-12 12:18] LABS: BLOOD, URINE NEG (NEG); GLUCOSE,URINE 1000 mg/dL (NEG); HYALINE CAST, URINE 7 /lpf (RARE); KETONE, URINE 150 mg/dL (NEG); MUCUS URINE FEW /lpf (OCC); NITRITE,URINE NEG (NEG); PH, URINE 5.5 (5.0-8.5); SQUAMOUS EPITHELIAL CELL URINE <1 /hpf (0-5); URINE COLOR YELLOW (YELLW/STRAW); URINE LEUKOCYTE ESTERASE NEG (NEG)
[2017-11-12 12:21] LABS: ALKALINE PHOSPHATASE 79 U/L (45-117); TOTAL BILIRUBIN ADULT 1.7 MG/DL (0.2-1.0); TOTAL PROTEIN 7.5 GM/DL (6.4-8.2)
[2017-11-12 12:23] LABS: BILIRUBIN, URINE NEG (NEG)
[2017-11-12] MEDS ORDERED: FAMO1TAB37 PO (13:17)
[2017-11-12] MEDS ORDERED: PRED1SUS EACH EYE (13:17)
[2017-11-12] MEDS ORDERED: IPRA0.02 NEB (13:17)
[2017-11-12] MEDS ORDERED: PRED20 PO (13:17)
[2017-11-12] MEDS ORDERED: METH2.5T PO (13:17)
[2017-11-12] MEDS ORDERED: FLUT50SP EACH NARE (13:17)
[2017-11-12] MEDS ORDERED: CYAN100042 IM (13:17)
[2017-11-12] MEDS ORDERED: CEPH500C PO (13:17)
[2017-11-12] MEDS ORDERED: LANTUS2P SQ (13:17)
[2017-11-12] MEDS ORDERED: FEXO15TA PO (13:17)
[2017-11-12] MEDS ORDERED: EMPA1TAB3 PO (13:17)
[2017-11-12] MEDS ORDERED: MULTTAB22 (13:17)
[2017-11-12] MEDS ORDERED: ALBUAER3 INH (13:17)
[2017-11-12] MEDS ORDERED: FAMO20TA2 PO (13:17)
[2017-11-12] MEDS ORDERED: METO-489 PO (13:17)
[2017-11-12] MEDS ORDERED: HUMA100I3 SQ (13:17)
[2017-11-12] MEDS ORDERED: FOLI800T PO (13:17)
[2017-11-12] MEDS ORDERED: BETH25TA2 PO (13:17)
[2017-11-12] MEDS ORDERED: HYDR-4107 PO (13:17)
[2017-11-12] MEDS ORDERED: PROT40TA PO (13:17)
[2017-11-12] MEDS ORDERED: MONT10TA4 PO (13:17)
[2017-11-12] MEDS ORDERED: [UNRECOGNIZED DRUG - CODE] IV (13:47)
[2017-11-12] MEDS ORDERED: LIDOCAINE VISCOUS 2% SOLN 15 ML UDC PO ONE (14:30)
[2017-11-12] MEDS ORDERED: ALUMINUM/MAGNESIUM/SIMETH 30 ML CUP PO ONE (14:30)
[2017-11-12] MEDS ORDERED: HYDROCORTISONE SOD SUCCINATE 100 MG VIAL IV PUSH ONE (14:30)
[2017-11-12 14:44] VITALS: BP 116/64; PULSE 90; RESP 18; O2SAT 97
[2017-11-12] MEDS ORDERED: HYDR5TAB64 PO (14:47)
[2017-11-12] MEDS ORDERED: HYDR10TA65 PO (14:47)
== END 2017-11-12 15:21 | disposition home or self-care (01) ==
LOC: NEPE 10:41
DX: R11.2 Nausea with vomiting, unspecified (principal); R19.7 Diarrhea, unspecified; E27.40 Unspecified adrenocortical insufficiency; D51.0 Vitamin B12 deficiency anemia due to intrinsic factor deficiency; M35.00 Sjogren syndrome, unspecified; I65.8 Occlusion and stenosis of other precerebral arteries; M35.2 Behcet's disease; M45.9 Ankylosing spondylitis of unspecified sites in spine; E13.40 Other specified diabetes mellitus with diabetic neuropathy, unspecified
CPT/HCPCS: 80053; 81001; 83690; 85025; 96361; 96374; 99284; J1720; J7030